=== PATIENT | female | born 1980 | race Caucasian/White ===

== ENCOUNTER 2017-12-21 10:17 | Emergency (ER) | payer OTHER ==
--- NOTE | 2017-12-21 11:17 | UC ---
Abdominal Pain Female HPI - HPI Summary HPI Summary: 37 year old female @ 12 weeks here with abdominal cramping that started last night. She had left sided sharp pain yesterday and this morning she started having lower abdominal cramps. Denies any n/v/ dysuria or hematuria or any other complaints. - History of Current Complaint Chief Complaint: UCAbdominalPain Stated Complaint: ABDOMINAL PAIN Time Seen by Provider: 12/21/17 10:57 Hx Last Menstrual Period: 2017 Onset/Duration: Gradual Onset Severity Initially: Mild Severity Currently: Mild Pain Intensity: 3 Radiates: No Character: Cramping Aggravating Factor(s): Nothing Alleviating Factor(s): Nothing Associated Signs and Symptoms: Positive: Negative Allergies/Adverse Reactions: Allergies Allergy/AdvReac Type Severity Reaction Status Date / Time Sulfa (Sulfonamide Allergy Severe Rash Verified 12/21/17 10:35 Antibiotics) Home Medications: Home Medications DiMENhydriNATE TAB* [DraMAMine TAB*] 50 mg PO DAILY 12/21/17 [History Confirmed 12/21/17] Doxylamine Succinate [Unisom] 12.5 mg PO BEDTIME 12/21/17 [History Confirmed ] Pyridoxine TAB* [Vitamin B6 TAB*] 1 tab PO BEDTIME 12/21/17 [History Confirmed 12/21/17] PMH/Surg Hx/FS Hx/Imm Hx Previously Healthy: No - gestational diabetes - Surgical History Surgical History: None Surgery Procedure, Year, and Place: IUD perf to uterous 2017 - Social History Alcohol Use: None Substance Use Type: None Smoking Status (MU): Never Smoked Tobacco Review of Systems Constitutional: Negative Skin: Negative Eyes: Negative ENT: Negative Respiratory: Negative Cardiovascular: Negative Gastrointestinal: Abdominal Pain Genitourinary: Negative Motor: Negative Neurovascular: Negative Musculoskeletal: Negative Neurological: Negative Psychological: Negative Is Patient Immunocompromised?: No All Other Systems Reviewed And Are Negative: Yes Physical Exam Triage Information Reviewed: Yes Appearance: Well-Appearing, No Pain Distress Vital Signs: Initial Vital Signs Temp 37.3 C 12/21/17 10:29 Pulse 79 12/21/17 10:29 Resp 16 12/21/17 10:29 BP 106/67 12/21/17 10:29 Pulse Ox 100 12/21/17 10:29 Eye Exam: Normal ENT Exam: Normal Neck exam: Normal Neck: Positive: 1 Respiratory Exam: Normal Cardiovascular Exam: Normal Abdominal Exam: Normal Musculoskeletal Exam: Normal Neurological Exam: Normal Psychological Exam: Normal Skin Exam: Normal Diagnostics - Radiology No standard instances Xray Interpretation: Positive (See Comments) - small perigestational hemorrhage Radiology Interpretation Completed By: Car Aden Female Course/Dx - Differential Dx/Diagnosis Differential Diagnosis: Urinary Tract Infection, Other - Subchorionic bleeding Provider Diagnoses: Abdominal cramping Discharge - Sign-Out/Discharge Documenting (check all that apply): Discharge/Admit/Transfer - Discharge Plan Condition: Good Disposition: HOME Patient Education Materials: Abdominal Pain in (ED) Referrals: Lily Moore MD [Primary Care Provider] - Additional Instructions: 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 If you have severe pain or bleeding, go to the nearest ED. - Billing Disposition and Condition Condition: GOOD Disposition: Home
[2017-12-21] MEDS ORDERED: Acetaminophen TAB* 325 MG PO ONE (11:42)
[2017-12-21 13:14] VITALS: BP 114/67
--- NOTE | 2017-12-21 13:31 | RAD ---
Indication: 13 weeks 0 days gestation based on September 21, 2017 LMP. Cramping sharp LEFT uterine region pain last night. History of IUD uterine perforation in June 2016. Comparison: No prior exams available on the [facility] [place]. Technique: Transabdominal obstetrical ultrasound. Report: Live single intrauterine gestation with 4.82 cm mean gestational sac diameter and 5.05 cm pole crown-rump length corresponding with 12 weeks 1 day gestation /AUA CARMELO July 04, 2018. Normal movement and cardiac activity with heart rate measuring 151 bpm. Yolk sac is not visualized. Unremarkable placenta; too early to assess for placenta previa. Small perigestational hemorrhage at the fundal portion measuring up to 1.5 cm maximum dimension. The anterior myometrium appears nodular and heterogeneous most likely reflecting presence of uterine fibroids. 3.2 x 2.8 x 1.7 cm RIGHT ovary with documented vascular flow is remarkable for small follicles only. 3.0 x 1.3 x 1.9 cm LEFT ovary with documented vascular flow is remarkable for small follicles only. No visualized extra ovarian adnexal region lesions evident. Negative for free pelvic fluid. IMPRESSION: #. Single live intrauterine gestation with estimated gestational age of 12 weeks 1 day based on this exam corresponding with AUA CARMELO of July 04, 2018 #. Small perigestational hemorrhage. #. The anterior myometrium appears nodular and heterogeneous most likely reflecting presence of uterine fibroids. #. No suspicious ovarian or visualized extra ovarian adnexal region lesions or free fluid.
== END 2017-12-21 13:48 | disposition home or self-care (01) ==
LOC: UCEAST 10:17
DX: R10.9 Unspecified abdominal pain (principal); Z88.2 Allergy status to sulfonamides
CPT/HCPCS: 76815; 81003; 99211; A9270-GY; G0463

== ENCOUNTER 2018-06-30 17:44 | Inpatient (IN) | payer OTHER ==
[2018-06-30] MEDS ORDERED: Nalbuphine* 10 MG/ML 1 ML VIAL IM ONE (19:08)
[2018-06-30] MEDS ORDERED: Promethazine INJ(RESTRICTED)* 25 MG/ML 1 ML VIAL IM ONE (19:08)
[2018-06-30] MEDS ORDERED: Dinoprostone* 10 MG VAG.SUPP VAGINAL ONE (19:08)
[2018-06-30] MEDS ORDERED: Lactated Ringers 1000 ML Bag* 1,000 ML IV ONE (19:08)
--- NOTE | 2018-06-30 19:24 | HP ---
General Information - Reason for Visit induction of labor - General Information Maternal Age: 38 Grav: 3 Para: 2 SAB: 0 IEA: 0 Estimated Due Date: 07/07/18 Determined By: LMP Maternal Blood Type and Rh: O Negative - Results this Serology/RPR Result: Non-Reactive Rubella Result: Immune HBsAg Result: Negative HIV Result: Negative GBS Culture Result: Positive Past Medical History Delivery History: Hx Uncomplicated Vaginal Delivery Pertinent Past Medical History: See Records - history of gestational diabetes in prior , RA, hx PPD Pertinent Past Surgical History: See Records - 2010 removal of inflamed tissue, IUD perforated uterus 2017 Pertinent Family History: See Records - DM, HTN, high chol - Antepartal Records Antepartal Records: Reviewed, Complicated by: - AMA Review of Systems Constitutional: Comfortable CV Complaint: No Respiratory: Shortness of Breath: No Gastrointestinal: No Nausea/Vomiting, Constipation Genitourinary: No Dysuria, No Bleeding, No Leaking Fluid Musculoskeletal: No Complaint, No Epigastric Pain Neurological: No Headache, No Visual Changes Movement: Normal Exam Allergies/Adverse Reactions: Allergies Sulfa (Sulfonamide Antibiotics) Allergy (Severe, Verified 05/22/18 23:14) Rash T:98.2, P:92, R:18, BP: 122/82, O2: 100% - Measurements Height: 5 ft 5 in Weight: 140 lb Weight in lbs: 140.338106 Body Mass Index (BMI): 23.3 Pre- Weight: 118 lb Weight Gained This : 22 lbs and 0 ozs - Exam Breast: Breast Exam Deferred CVA: No CVA Tenderness Extremities: No Edema Heart: Normal Rhythm/Heart Sounds HEENT: No Significant Findings Lungs: Clear Bilaterally Rectal: Rectal Exam Deferred Reflexes: DTR 2+ Thyroid: No Thyromegaly - Abdominal Exam Abdomen Exam: Non-Tender, Fundal Height Consistent with Dates - Ultrasound/Biophysical Profile Ultrasound Status: Not Done Targeted Exam Findings Estimated Weight: 6lbs 9oz Cervical Exam: 2cm Effacement: 70% Station: -2, -1 Presenting Part: Vertex Membrane Status: Intact Bleeding/Discharge: Bloody Show EFM Findings - External Monitor Findings Baseline Heart Rate: 125 External Monitor Findings: Accelerations Present, No Pattern of Variable or Late Decelerations, Variability Moderate, Baseline Stable Contractions: None Assessment/Plan - Assessment 38 y.o. , 39weeks EGA, induction of labor - Plan Plan: Cervical Ripening - Date/Time of Admission Date of Admission: 06/30/18 Time of Admission: 19:00
[2018-06-30] MEDS ORDERED: Lactated Ringers 1000 ML Bag* 1,000 ML IV SCH (20:00)
[2018-06-30] MEDS ORDERED: Sodium Phosphate ADULT ENEMA* 118 ml bottle PR ONE (20:40)
[2018-07-01] MEDS ORDERED: Penicillin G Potassium IV* 5,000,000 UNITS in NS 0.9% 100 ML* 100 ML IVPB ONE (08:50)
[2018-07-01] MEDS ORDERED: Oxytocin in LR* 20 UNITS/1,000 ML BAG IVPB SCH ×2 (09:00→22:00)
--- NOTE | 2018-07-01 09:38 | PN ---
Progress Note - Progress Note Date of Service: 07/01/18 SOAP: Subjective: [Pt rested well overnight, reports regular contractions that stopped after nubain and phenergan and started again after vaginal exam. +FM, -LOF, + bloody show.] Objective: [BP: 105/59, T:97.8, R:16, FHT: 120 bpm, +accels, -dece;s, moderate variability ctx irregular cervix: 3/70/-1] Assessment: [38 y.o. , 39w1d EGA, GBS +, induction of labor] Plan: [1) Start GBS prophylaxis 2) Reevaluate in 2 hr or sooner PRN 3) Consider low dose pitocin if no progress 4) Questions answered to pt satisfaction and reviewed risks versus benefits of induction of labor and pitocin.]
[2018-07-01 10:05] LABS: ABS Basophils 0.1 10^3/ul (0-0.2); ABS Eosinophils 0 10^3/ul (0-0.6); ABS Lymphocytes 2.5 10^3/ul (1.0-4.8); ABS Monocytes 0.4 10^3/ul (0-0.8); ABS Neutrophils 8.2 10^3/ul (1.5-7.7); ABS Nucleated RBC 0 10^3/ul; Eosinophil % 0.2 %; Hematocrit 37 % (35-47); Hemoglobin 12.4 g/dl (12.0-16.0); Lymphocyte % 22.1 %; Mean Corpuscular HGB Conc 34 g/dl (31-36); Mean Corpuscular Hemoglobin 32 pg (27-31); Mean Corpuscular Volume 95 fL (80-97); Mean Platelet Volume 9.5 fL (7.4-10.4); Nucleated Red Blood Cells % 0; Platelet Count 171 10^3/ul (150-450); Red Blood Count 3.84 10^6/ul (4.00-5.40); Red Cell Distribution Width 13 % (10.5-15); White Blood Count 11.2 10^3/ul (3.5-10.8)
[2018-07-01] MEDS: Penicillin G Potassium IV* 2,500,000 UNITS in NS 0.9% 100 ML* 100 ML IVPB SCH ×2 (13:39→17:22)
--- NOTE | 2018-07-01 14:35 | PN ---
Progress Note - Progress Note Date of Service: 07/01/18 SOAP: Subjective: [Pt report continued irregular ctx. +FM, -LOF.] Objective: [BP: 114/67, P:84, T:98.5, FHT: 135 bpm, + accels, -decels, moderate variability, ctx q 2-4min. cervix: 4/80/-1, AROM, clear, scant.] Assessment: [38 y.o. 39w1d EGA, early labor. ] Plan: [1) AROM for augmentation 2) nitrous oxide for pain relief 3) Reevaluate PRN]
[2018-07-01] MEDS ORDERED: OBEPIDURAL* 250 ML EPIDURAL ONE (18:12)
[2018-07-01] MEDS ORDERED: fentaNYL* 50 MCG/ML 2 ML VIAL (100 MCG VIAL) ONE (18:38)
[2018-07-01] MEDS ORDERED: Phenylephrine INJ* 10 MG/ML 1 ML VIAL (10 MG) ONE (18:44)
[2018-07-01] MEDS ORDERED: Lactated Ringers 1000 ML Bag* 1,000 ML IV ONE (19:04)
[2018-07-01] MEDS ORDERED: Famotidine TAB* 20 MG PO PRN (19:04)
[2018-07-01] MEDS ORDERED: Phenylephrine IV* 40 MCG/ML 10 ML SYRINGE IV PUSH PRN (19:04)
[2018-07-01] MEDS ORDERED: Sodium Citrate/Citric Acid* 15 ML UDC PO PRN (19:04)
[2018-07-01] MEDS: Phenylephrine IV* 40 MCG/ML 10 ML SYRINGE IV PUSH PRN ×3 (19:07→19:40)
--- NOTE | 2018-07-01 19:57 | PN ---
Progress Note - Progress Note Date of Service: 07/01/18 SOAP: Subjective: [Pt reports increased pressure. Pain moderately well controlled with epidural.] Objective: [BP 86/43, repeat 93/63, P:85 bpm cervix: 7/90/-2 FHR: 140bpm, +accels, occasional variables, moderate variability, ctx q 3-5] Assessment: [38 y.o. 39w 1d EGA] Plan: [1) Pitocin augmentation, reviewed risks versus benefits and pt consents. 2) Position changes for descent 3) Reevaluate PRN]
[2018-07-01] MEDS ORDERED: Lactated Ringers 1000 ML Bag* 1,000 ML IV SCH ×2 (20:00→22:00)
[2018-07-01] MEDS ORDERED: OBEPIDURAL* 250 ML EPIDURAL SCH (20:00)
[2018-07-01] MEDS ORDERED: Dibucaine 1% 28.35 GM TUBE ONE (21:03)
[2018-07-01] MEDS ORDERED: Witch Hazel PAD* JAR ONE (21:03)
[2018-07-01] MEDS ORDERED: Ibuprofen TAB* 600 MG ONE (21:03)
[2018-07-01] MEDS ORDERED: Dibucaine 1% 28.35 GM TUBE PR PRN (21:05)
[2018-07-01] MEDS ORDERED: Witch Hazel PAD* JAR TOPICAL PRN (21:05)
[2018-07-01] MEDS ORDERED: Glycerin ADULT SUPP PR PRN (21:05)
--- NOTE | 2018-07-01 21:05 | PROCNOTE ---
[facility] OB: Delivery Note - Delivery A Date of : 07/01/18 Time of : 20:47 Sex: Female Score 1 Minute: 9 Score 5 Minutes: 9 Gestational Age in Weeks and Days at Delivery: 39 Weeks and 1 Days Delivery Method: Spontaneous Vaginal Labor: Induced Amniotic Fluid: Clear Estimated Blood Loss: 150 Anesthesia/Analgesia: CEI for Labor Delivered By: Katie Cortes - Nursery Level of Nursery: Regular/Bedside - Perineum Perineal Injury: None/Intact Perineal Repair: None - Events Delivery Events of Note: Pitocin During Labor, Pitocin Only After Delivery Delivery Events of Note Comment: tight nuchal cord, baby delivered through the cord
[2018-07-01] MEDS: Ibuprofen TAB* 600 MG PO PRN (21:15)
[2018-07-02] MEDS: Acetaminophen TAB* 325 MG PO PRN ×5 (00:30→17:59)
[2018-07-02] MEDS: Ibuprofen TAB* 600 MG PO PRN ×4 (04:08→21:33)
[2018-07-02] MEDS ORDERED: Docusate CAP* 100 MG ONE (04:11)
[2018-07-02 06:59] LABS: ABS Basophils 0.2 10^3/ul (0-0.2); ABS Eosinophils 0 10^3/ul (0-0.6); ABS Lymphocytes 3.2 10^3/ul (1.0-4.8); ABS Monocytes 0.9 10^3/ul (0-0.8); ABS Neutrophils 12.1 10^3/ul (1.5-7.7); ABS Nucleated RBC 0 10^3/ul; Eosinophil % 0.2 %; Hematocrit 32 % (35-47); Hemoglobin 10.9 g/dl (12.0-16.0); Lymphocyte % 19.6 %; Mean Corpuscular HGB Conc 34 g/dl (31-36); Mean Corpuscular Hemoglobin 33 pg (27-31); Mean Corpuscular Volume 96 fL (80-97); Mean Platelet Volume 9.3 fL (7.4-10.4); Nucleated Red Blood Cells % 0; Platelet Count 151 10^3/ul (150-450); Red Blood Count 3.34 10^6/ul (4.00-5.40); Red Cell Distribution Width 13 % (10.5-15); White Blood Count 16.4 10^3/ul (3.5-10.8)
[2018-07-02] MEDS ORDERED: Simethicone TAB* 80 MG TAB.CHEW PO SCH (08:30)
[2018-07-02] MEDS ORDERED: Ferrous Gluconate TAB* 324 MG TAB PO SCH (09:00)
[2018-07-02] MEDS: Docusate CAP* 100 MG PO SCH ×3 (09:31→21:33)
[2018-07-02] MEDS ORDERED: Ibuprofen TAB* 600 MG ONE (16:08)
[2018-07-02] MEDS ORDERED: RHO D Immune Globulin (HUMAN)* 300 MCG = 1,500 I.U. INJ IM ONE (17:36)
[2018-07-03] MEDS: Ibuprofen TAB* 600 MG PO PRN ×2 (03:21→09:46)
[2018-07-03] MEDS: Penicillin G Potassium IV* 2,500,000 UNITS in NS 0.9% 100 ML* 100 ML IVPB SCH ×2 (08:34→08:35)
[2018-07-03] MEDS ORDERED: Measles, Mumps,Rubella VACC* 0.5 ML/VIAL ONE (09:42)
[2018-07-03] MEDS: Docusate CAP* 100 MG PO SCH (09:47)
[2018-07-03 09:57] VITALS: BP 117/70
== END 2018-07-03 12:08 | disposition home or self-care (01) | DRG 807 ==
LOC: MCHOBOUT 17:44 → MCHOB 19:00
PROVIDERS: ADMIT Midwife; ATTEND Midwife
PROC: 10E0XZZ Delivery of Products of Conception, External Approach (ICD-10-PCS; principal; 2018-07-01)
PROC: 3E033VJ Introduction of Other Hormone into Peripheral Vein, Percutaneous Approach (ICD-10-PCS; 2018-07-01)
PROC: 10907ZC Drainage of Amniotic Fluid, Therapeutic from Products of Conception, Via Natural or Artificial Opening (ICD-10-PCS; 2018-07-01)
DX: O99.824 Streptococcus B carrier state complicating childbirth (principal); Z37.0 Single live birth; Z3A.39 39 weeks gestation of pregnancy
CPT/HCPCS: 36415; 85025; 85461; 86850; 86900; 86901; 90707; A9270-GY; J2300; J2540; J2550; J2790; J3010